=== PATIENT | female | born 1970 | race Caucasian/White ===

== ENCOUNTER 2021-06-28 16:22 | Observation (INO) ==
[2021-06-28] MEDS ORDERED: 0.9 % Sodium Chloride 1,000 ML IVC ONE ×2 (17:03→18:45)
[2021-06-28 18:05] LABS: Basophils % 0.1 %; Eosinophils % 0.1 %; Hemoglobin 12.8 g/dL (11.5-15.4); Immature Granulocytes % 0.3 % (0-4); Lymphocytes # 0.9 K/mcL (0.6-4.6); Mean Corpuscular HGB Conc 32.8 g/dL (31.6-35.5); Mean Corpuscular Hemoglobin 29.6 pg (28.0-33.3); Mean Corpuscular Volume 90.1 fL (83.0-100.0); Mean Platelet Volume 9.9 fL (9.4-12.4); Monocytes # 0.6 K/mcL (0.0-1.3); Platelet Count 192 K/mcL (140-400); Red Blood Count 4.33 M/mcL (3.82-4.97); Red Cell Distribution Width 13.3 % (11.5-14.5); Segmented Neutrophils % 89.5 %; White Blood Count 15.6 K/mcL (4.3-11.1)
[2021-06-28 18:26] LABS: Alanine Aminotransferase 12 Units/L (7-52); Albumin 3.7 g/dL (3.5-5.7); Albumin/Globulin Ratio 1.3 (1.1-2.2); Alkaline Phosphatase 87 Units/L (34-104); Aspartate Amino Transferase 14 Units/L (13-39); BUN/Creatinine Ratio 12 (6-26); Bilirubin,Direct 0.1 mg/dL (0.0-0.2); Bilirubin,Indirect 0.6 mg/dL (0.0-1.0); Bilirubin,Total 0.7 mg/dL (0.3-1.0); Blood Urea Nitrogen 8 mg/dL (6-20); Calcium 10.3 mg/dL (8.6-10.3); Carbon Dioxide 23 mEq/L (23-29); Chloride 103 mEq/L (98-107); Globulin 2.9 g/dL (2.4-3.5); Glucose 133 mg/dL (70-105); Osmolality,Calculated 278 (280-300); Potassium 3.7 mEq/L (3.5-5.1); Sodium 134 mEq/L (136-145); Total Protein 6.6 g/dL (6.4-8.9); eGFR For African Americans > 60 (> 60); eGFR For Non-African Americans > 60 (> 60)
[2021-06-28 18:27] LABS: Troponin I < 0.03 ng/mL (< 0.04)
[2021-06-28] MEDS ORDERED: Isovue-370 500 ML BOTTLE IVP ONE (18:45)
[2021-06-28] MEDS ORDERED: cefTRIAXone 1,000 MG in 0.9 % Sodium Chloride Mini Bag 100 ML IVPB ONE (20:08)
[2021-06-28] MEDS ORDERED: Azithromycin 500 MG in 0.9 % Sodium Chloride 250 ML IVPB ONE (20:08)
[2021-06-28] MEDS ORDERED: *HR* HYDROcodone/Acet 5/325 mg TABLET PO PRN (21:29)
[2021-06-28] MEDS ORDERED: Acetaminophen 325 MG TABLET PO PRN (21:29)
[2021-06-28] MEDS ORDERED: Melatonin 3 MG TABLET PO PRN (21:29)
[2021-06-28] MEDS ORDERED: Ondansetron 4 MG/2 ML VIAL IVP PRN (21:29)
[2021-06-28] MEDS ORDERED: Naloxone 0.4 MG/ML INJ IVP PRN (21:29)
[2021-06-28 22:16] LABS: Influenza A PCR Negative (Negative); Influenza B PCR Negative (Negative); Resp. Syncytial Virus PCR Negative (Negative)
[2021-06-28 22:17] LABS: SARS-CoV-2 by PCR (In House) Negative (Negative)
[2021-06-28] MEDS: Ipratropium/Albuterol Neb 3 ML IH SCH (23:38)
[2021-06-29] MEDS ORDERED: Ringers Solution, Lactated 500 ML IVC ONE (02:39)
[2021-06-29] MEDS ORDERED: Perflutren Lipid Microsphere 1.3 ML in 0.9 % Sodium Chloride 8.7 ML IVP PRN (02:46)
[2021-06-29] MEDS ORDERED: Ringers Solution, Lactated 1,000 ML ONE (02:56)
[2021-06-29] MEDS: Ipratropium/Albuterol Neb 3 ML IH SCH ×4 (03:47→20:17)
[2021-06-29 04:13] LABS: Basophils % 0.3 %; Eosinophils # 0.1 K/mcL (0.0-0.6); Eosinophils % 0.7 %; Hematocrit 33.5 % (35.3-44.9); Immature Granulocytes % 0.4 % (0-4); Lymphocytes # 2.3 K/mcL (0.6-4.6); Lymphocytes % 14.5 %; Mean Corpuscular HGB Conc 32.8 g/dL (31.6-35.5); Mean Corpuscular Hemoglobin 29.1 pg (28.0-33.3); Mean Corpuscular Volume 88.6 fL (83.0-100.0); Mean Platelet Volume 10.1 fL (9.4-12.4); Monocytes # 0.9 K/mcL (0.0-1.3); Monocytes % 5.9 %; Neutrophils # 12.4 K/mcL (1.6-8.9); Platelet Count 173 K/mcL (140-400); Red Blood Count 3.78 M/mcL (3.82-4.97); Red Cell Distribution Width 13.4 % (11.5-14.5); Segmented Neutrophils % 78.2 %; White Blood Count 15.9 K/mcL (4.3-11.1)
[2021-06-29 04:21] LABS: INR 1.2
[2021-06-29 04:36] LABS: Chol/HDL Ratio 3.1 (0-4.9); Magnesium 1.6 mg/dL (1.6-2.6); Phosphorous 1.8 mg/dL (2.7-4.5)
[2021-06-29 04:37] LABS: BUN/Creatinine Ratio 11 (6-26); Blood Urea Nitrogen 6 mg/dL (6-20); Calcium 9.5 mg/dL (8.6-10.3); Carbon Dioxide 20 mEq/L (23-29); Chloride 110 mEq/L (98-107); Glucose 117 mg/dL (70-105); Osmolality,Calculated 283 (280-300); Potassium 3.7 mEq/L (3.5-5.1); Sodium 137 mEq/L (136-145); eGFR For African Americans > 60 (> 60); eGFR For Non-African Americans > 60 (> 60)
[2021-06-29 05:40] LABS: Estimated Average Glucose 103 mg/dl; Hemoglobin A1C 5.2 %
[2021-06-29] MEDS: Lactobacillus 1 EACH CAP.SPRINK PO SCH ×2 (07:45→21:23)
[2021-06-29] MEDS: Chlorhexidine Rinse 15 ML MOUTHWASH MM SCH ×2 (07:45→21:23)
[2021-06-29] MEDS: Multivit/Ca/Min/Fe/FA 1 TAB TABLET PO SCH (07:45)
[2021-06-29] MEDS: Azithromycin 250 MG TABLET PO SCH (07:45)
[2021-06-29] MEDS: Norgestimate-Ethinyl Estradiol [Tri-Sprintec Tablet] PO SCH (07:53)
[2021-06-29] MEDS: cefTRIAXone 2,000 MG in 0.9 % Sodium Chloride 10 ML IVP SCH (07:55)
[2021-06-29] MEDS: MetroNIDAZOLE 500 MG/100 ML 500 MG/100 ML BAG IVPB SCH ×3 (08:20→21:22)
[2021-06-29] MEDS ORDERED: cefTRIAXone 1,000 MG in 0.9 % Sodium Chloride 10 ML IVP SCH (09:00)
[2021-06-30] MEDS: Ipratropium/Albuterol Neb 3 ML IH SCH ×2 (04:10→11:11)
[2021-06-30] MEDS: Chlorhexidine Rinse 15 ML MOUTHWASH MM SCH (07:26)
[2021-06-30] MEDS: Multivit/Ca/Min/Fe/FA 1 TAB TABLET PO SCH (07:26)
[2021-06-30] MEDS: Lactobacillus 1 EACH CAP.SPRINK PO SCH (07:26)
[2021-06-30] MEDS: Azithromycin 250 MG TABLET PO SCH (07:26)
[2021-06-30] MEDS: cefTRIAXone 2,000 MG in 0.9 % Sodium Chloride 10 ML IVP SCH (07:27)
[2021-06-30] MEDS: MetroNIDAZOLE 500 MG/100 ML 500 MG/100 ML BAG IVPB SCH (07:27)
[2021-06-30] MEDS: Norgestimate-Ethinyl Estradiol [Tri-Sprintec Tablet] PO SCH (07:35)
[2021-06-30 08:12] VITALS: BP 109/73; PULSE 88; TEMP 98.3; O2SAT 94
[2021-07-02 10:19] LABS: Mycoplasma pneumoniae IgG 1.5 U/L (<=0.09)
== END 2021-06-30 11:23 | disposition home or self-care (01) ==
LOC: EMEROOARM 16:22 → 3ANU 16:22 → SUATTDRO 21:08 → 3ANU 22:15
PROVIDERS: ADMIT Internal Medicine; ATTEND Internal Medicine